=== PATIENT | male | born 1960 | race Caucasian/White ===

== ENCOUNTER 2017-12-01 08:15 | Inpatient (IN) | payer BC ==
[2017-12-01 09:25] VITALS: BMI 26.1
--- NOTE | 2017-12-01 10:46 | HP ---
COWS - Scale Resting Pulse: 1= [place] 81-100 Sweatin= Chills/Flushing Restless Observation: 1= Difficult to Sit Still Pupil Size: 2= Moderately Dilated Bone or Joint Aches: 1= Mild Discomfort Runny Nose/ Eye Tearin= Nasal Congestion GI Upset > 30mins: 1= Stomach Cramp Tremor Observation: 2= Slight Tremor Visible Yawning Observation: 1= 1-2x During Session Anxiety or Irritability: 1=Feels Anxious/Irritable Goose Flesh Skin: 0=Smooth Skin COWS Score: 12 Admission [facility] Chief Complaint: Heroin withdrawal symptoms. Allergies/Adverse Reactions: Allergies Allergy/AdvReac Type Severity Reaction Status Date / Time Penicillins AdvReac Swelling Verified 12/01/17 09:28 History of Present Illness: Patient presents with Heroin withdrawal symptoms. Patient starting sniffing heroin at age 18. Uses up to 10 bags daily. Also buys non-prescription Methadone. Denies nicotine dependence. Has PMH BPH, Asthma, depression and anxiety. Last attempt of detox was one year ago at [facility]. Reports last use of Heroin this morning. Denies SI/HI and suicide attempts. Social ETOH use. Exam Limitations: No Limitations - Ebola screening Have you traveled outside of the country in the last 21 days: No (N) Have you had contact with anyone from an Ebola affected area: No Have you been sick,other than usual withdrawal symptoms: No Do you have a fever: No - Review of Systems Constitutional: Chills, Night Sweats, Changes in sleep, Weight Stable EENT: reports: Nose Congestion Respiratory: reports: No Symptoms reported Cardiac: reports: No Symptoms Reported GI: reports: Poor Fluid Intake, Abdominal cramping : reports: Frequency Musculoskeletal: reports: Back Pain, Joint Pain, Muscle Pain Integumentary: reports: Sweating Neuro: reports: Tremors Endocrine: reports: No Symptoms Reported Hematology: reports: No Symptoms Reported Psychiatric: reports: Anxious, Depressed Patient History - Patient Medical History Hx Anemia: No Hx Asthma: Yes (ALBUTEROL PUMP) Hx Chronic Obstructive Pulmonary Disease (COPD): No Hx Cancer: No Hx Cardiac Disorders: No Hx Congestive Heart Failure: No Hx Hypertension: No Hx Hypercholesterolemia: No Hx Pacemaker: No HX Cerebrovascular Accident: No Hx Seizures: No Hx Dementia: No Hx Diabetes: No Hx Gastrointestinal Disorders: No Hx Liver Disease: No Hx Genitourinary Disorders: No Hx Sexually Transmitted Disorders: No Hx Renal Disease (ESRD): No Hx Thyroid Disease: No Hx Human Immunodeficiency Virus (HIV): No (Last test one year ago and results negative as per patient.) Hx Hepatitis C: No Hx Depression: Yes Hx Suicide Attempt: No Hx Bipolar Disorder: No Hx Schizophrenia: No - Patient Surgical History Past Surgical History: Yes Hx Neurologic Surgery: No Hx Cataract Extraction: No Hx Cardiac Surgery: No Hx Lung Surgery: No Hx Breast Surgery: No Hx Breast Biopsy: No Hx Abdominal Surgery: No Hx Appendectomy: No Hx Cholecystectomy: No Hx Genitourinary Surgery: No Hx Orthopedic Surgery: Yes (LEFT KNEE SURGERY 30-35 YEARS AGO) Anesthesia Reaction: No - PPD History Previous Implant?: Yes Documented Results: Negative w/o proof PPD to be Administered?: Yes - Smoking Cessation Smoking history: Never smoked Have you smoked in the past 12 months: No Hx Chewing Tobacco Use: No Initiated information on smoking cessation: No - Substance & Tx. History Hx Alcohol Use: Yes Hx Substance Use: Yes Substance Use Type: Heroin - Substances Abused Heroin Route: Inhalation Frequency: Daily Amount used: 10 BAGS DAILY ($75) Age of first use: 22 Date of Last Use: 12/01/17 Non-Rx Methadone Route: Oral Frequency: 3-6 times per week Amount used: 10 MG WHEN USED Age of first use: 29 Date of Last Use: 12/01/17 Alcohol Route: Oral Frequency: Daily Amount used: 2 BEERS DAILY Age of first use: 39 Date of Last Use: 11/26/17 Family Disease History - Family Disease History Family Disease History: Other: Mother (Depression, alive) Admission Physical Exam S - Vital Signs Vital Signs: Vital Signs - 24 hr 12/01/17 09:23 Temperature 97.9 F Pulse Rate 93 H Respiratory 18 Rate Blood Pressure 113/72 - Physical General Appearance: Yes: Appropriately Dressed, Tremorous, Sweating, Anxious HEENTM: Yes: EOMI, Hearing grossly Normal, Normocephalic, Normal Voice, SUHAIL, Pharynx Normal, Nasal Congestion Respiratory: Yes: Chest Non-Tender, Lungs Clear, Normal Breath Sounds, No Respiratory Distress, No Accessory Muscle Use Neck: Yes: No masses,lesions,Nodules, Supple Breast: Yes: Breast Exam Deferred Cardiology: Yes: Regular Rhythm, Regular Rate, S1, S2 Abdominal: Yes: Normal Bowel Sounds, Non Tender, Flat, Soft Genitourinary: Yes: Frequency Back: Yes: Normal Inspection, Muscle Spasm Musculoskeletal: Yes: full range of Motion, Gait Steady, Back pain, Muscle Pain Extremities: Yes: Normal Inspection, Normal Range of Motion, Non-Tender, Tremors Neurological: Yes: etcher aircraft II-XII NML intact, Fully Oriented, Alert, Motor Strength 5/5, Depressed Affect Integumentary: Yes: Normal Color, Warm, Moist Lymphatic: Yes: Within Normal Limits - Diagnostic (1) Opioid dependence with withdrawal Current Visit: Yes Status: Acute (2) Depressed affect Current Visit: Yes Status: Acute (3) Anxiety Current Visit: Yes Status: Acute (4) BPH (benign prostatic hyperplasia) Current Visit: Yes Status: Chronic Qualifiers: Lower urinary tract symptom presence: unspecified whether lower urinary tract symptoms present Qualified Code(s): N40.0 - Benign prostatic hyperplasia without lower urinary tract symptoms (5) Asthma Current Visit: Yes Status: Chronic Qualifiers: Asthma complication type: unspecified Cleared for Admission [facility] - Detox or Rehab [facility] Level of Care: Medically Managed Detox Regimen/Protocol: Methadone [facility] Breath Alcohol Content Breath Alcohol Content: 0 Urine Drug Screen - Results Drug Screen Negative: No Urine Drug Screen Results: OPI-Opiates, MTD-Methadone, OXY-Oxycodone
[2017-12-01] MEDS ORDERED: ALBUTEROL SO4 18 GM HFA INHALER IH PRN (10:55)
[2017-12-01] MEDS ORDERED: MAG HYDROX/AL HYDROX/SIMETH 30 ML UNIT-DOSE CUP PO PRN (10:57)
[2017-12-01] MEDS ORDERED: guaiFENesin/D-METHORPHAN HB 10 ML UNIT-DOSE CUPS PO PRN (10:57)
[2017-12-01] MEDS ORDERED: P-EPHED 60MG/TRIPROLIDI 2.5MG TABLET PO PRN (10:57)
[2017-12-01] MEDS ORDERED: MAGNESIUM HYDROX 2400MG/30ML ORAL SUSPENSION 30 ML CUP PO PRN (10:57)
[2017-12-01] MEDS ORDERED: MENTHOL/PHENOL 1 EACH UD MM PRN (10:57)
[2017-12-01] MEDS ORDERED: ACETAMINOPHEN 325 MG TABLET (FP) PO PRN (10:57)
[2017-12-01] MEDS ORDERED: LOPERAMIDE HCL 2 MG CAPSULE PO PRN (10:57)
[2017-12-01] MEDS ORDERED: MAGNESIUM CITRATE 300 ML BOTTLE PO PRN (10:57)
[2017-12-01] MEDS ORDERED: IBUPROFEN 400 MG TABLET (FP) PO PRN (10:57)
[2017-12-01] MEDS ORDERED: METHADONE HCL 10 MG TABLET (FOR DETOX USE ONLY) PO ONE ×2 (12:10→23:00)
[2017-12-01] MEDS: diazePAM 5 MG TABLET PO PRN (12:20)
--- NOTE | 2017-12-01 13:59 | CONSULT ---
[facility] Psychiatric Consult - Data Date of interview: 12/01/17 Admission source: [facility] Identifying data: First admission to [facility] for this 57 y/o male seeking detox treatment on for opiod and alcohol dependence.Patient is ,a father of two,domiciled,unemployed and supported on SSI benefits. Substance Abuse History: Discussed with the patient.Mr Garcia reports continuous use of street methadone and " a couple of beers " 3-4 times a week.Details in current [facility] reprort.Smoking history: Never smoked. Have you smoked in the past 12 months: No. Hx Chewing Tobacco Use: No. Initiated information on smoking cessation: No. - Substance & Tx. History. Hx Alcohol Use: Yes. Hx Substance Use: Yes. Substance Use Type: Heroin. - Substances Abused. Heroin. Route : Inhalation. Frequency: Daily. Amount used: 10 BAGS DAILY ($75). Age of first use: 22. Date of Last Use: 12/01/17. Non-Rx Methadone. Route: Oral. Frequency: 3-6 times per week. Amount used: 10 MG WHEN USED. Age of first use: 29. Date of Last Use: 12/01/17. Alcohol. Route: Oral. Frequency: Daily. Amount used: 2 BEERS DAILY. Age of first use: 39. Date of Last Use: Medical History: Benign prostatic hyperplasia (BPH),bronchial asthma and a remote history of orthosurgery (left knee). Psychiatric History: Patient denies history of psychiatric hospitalizations or suicide attempts.Mr Garcia is currently prescribed seroquel 50 mg/hs by his primary care physician to address insomnia. Physical/Sexual Abuse/Trauma History: No history. Additional Comment: Urine Drug Screen Results: OPI-Opiates, MTD-Methadone, OXY- Oxycodone.Noted. Mental Status Exam - Mental Status Exam Alert and Oriented to: Time, Place, Person Cognitive Function: Good Patient Appearance: Well Groomed Mood: Hopeful, Euthymic Affect: Appropriate, Normal Range Patient Behavior: Fatigued, Appropriate, Cooperative Speech Pattern: Clear, Appropriate Voice Loudness: Normal Thought Process: Intact, Goal Oriented Thought Disorder: Not Present Hallucinations: Denies Suicidal Ideation: Denies Homicidal Ideation: Denies Insight/Judgement: Fair Sleep: Poorly, Difficulty falling asleep Appetite: Good Muscle strength/Tone: Normal Gait/Station: Normal Psychiatric Findings - Problem List ([place] 1, 2,3) (1) Opioid dependence with withdrawal Current Visit: Yes Status: Acute (2) Insomnia Current Visit: Yes Status: Chronic - Initial Treatment Plan Initial Treatment Plan: Psychoeducation.Sleep hygiene.Detoxification in progress.Seroquel 50 mg po hs.Side effects/benefits discussed with the patient.Mr Garcia agrees to this careplan.Observation.
--- NOTE | 2017-12-01 18:04 | EKG ---
Test Reason : Blood Pressure : / mmHG Vent. Rate : 074 BPM Atrial Rate : 074 BPM P-R Int : 220 ms QRS Dur : 094 ms QT Int : 384 ms P-R-T Axes : 057 -30 051 degrees QTc Int : 426 ms SINUS RHYTHM WITH 1ST DEGREE A-V BLOCK LEFT AXIS DEVIATION INCOMPLETE RIGHT BUNDLE BRANCH BLOCK ABNORMAL ECG NO PREVIOUS ECGS AVAILABLE Confirmed by CATRACHITA CHOPRA MD ([id number]) on 12/01/2017 6:04:12 PM Referred By: Confirmed By:CATRACHITA CHOPRA MD
[2017-12-01] MEDS ORDERED: MELATONIN 5 MG TABLETS PO PRN (22:00)
[2017-12-01] MEDS: THIAMINE HCL 100 MG TABLET (FP) PO SCH (22:04)
[2017-12-01] MEDS: QUEtiapine FUMARATE 50 MG TABLET PO SCH (22:04)
[2017-12-02] MEDS ORDERED: METHADONE HCL 10 MG TABLET (FOR DETOX USE ONLY) PO ONE (10:00)
[2017-12-02 10:06] LABS: HEMATOCRIT 45.6 % (35.4-49); HEMOGLOBIN 15.7 GM/dL (11.7-16.9); MCH 31.2 pg (25.7-33.7); MCHC 34.4 g/dl (32.0-35.9); MEAN CELL VOLUME 90.7 fl (80-96); MEAN PLT VOLUME 8.5 fl (7.5-11.1); PLATELET COUNT 166 K/MM3 (134-434); RBC 5.02 M/mm3 (4.00-5.60); RDW 13.4 % (11.9-15.9); WHITE BLOOD COUNT 6.8 K/mm3 (4.0-10.0)
[2017-12-02 10:20] LABS: CHLORIDE 104 mmol/L (98-107); POTASSIUM 4.3 mmol/L (3.5-5.1); SODIUM 142 mmol/L (136-145)
[2017-12-02] MEDS: TAMSULOSIN HCL 0.4 MG CAP.ER.24H (FP) PO SCH (10:27)
[2017-12-02] MEDS: diazePAM 5 MG TABLET PO PRN ×2 (10:27→19:00)
[2017-12-02] MEDS: PRENATAL VITAMINS W/ FOLIC ACID TABLET (FP) PO SCH (10:27)
[2017-12-02 10:40] LABS: URINE APPEARANCE TURBID; URINE BILIRUBIN NEGATIVE (<2.0 mg/dL); URINE GLUCOSE (UA) NEGATIVE (NEGATIVE); URINE KETONE NEGATIVE (NEGATIVE); URINE LEUK ESTERASE NEGATIVE (NEGATIVE); URINE NITRITE NEGATIVE (NEGATIVE); URINE PROTEIN NEGATIVE (NEGATIVE); URINE UROBILINOGEN NEGATIVE mg/dL (0.2-1.0)
--- NOTE | 2017-12-02 10:52 | PN ---
BHS COWS - Scale Resting Pulse: 1= [place] 81-100 Sweatin= Chills/Flushing Restless Observation: 3= Extraneous Movement Pupil Size: 0= Normal to Room Light Bone or Joint Aches: 2= Severe Diffuse Aches Runny Nose/ Eye Tearin= Nasal Congestion GI Upset > 30mins: 0= None Tremor Observation of Outstretched Hands: 2= Slight Tremor Visible Yawning Observation: 0= None Anxiety or Irritability: 2=Irritable/Anxious Goose Flesh Skin: 0=Smooth Skin COWS Score: 12 BHS Progress Note (SOAP) Subjective: ANXIETY,SWEATS/CHILLS,TREMORS,FATIGUE. Objective: 12/02/17 10:51 Vital Signs 12/02/17 12/02/17 12/02/17 03:30 06:18 06:30 Temperature 96.9 F L Pulse Rate 74 Respiratory 18 18 18 Rate Blood Pressure 105/70 12/02/17 09:23 Temperature 98.4 F Pulse Rate 87 Respiratory 20 Rate Blood Pressure 117/74 Laboratory Tests 12/01/17 12/02/17 12/02/17 12:00 06:00 06:00 WBC 6.8 RBC 5.02 Hgb 15.7 Hct 45.6 MCV 90.7 MCH 31.2 MCHC 34.4 RDW 13.4 Plt Count 166 MPV 8.5 Sodium 142 Potassium 4.3 Chloride 104 HIV 1&2 Antibody Screen Negative HIV P24 Antigen Negative OTHER LABS PENDING Assessment: 12/02/17 10:52 WITHDRAWAL SX Plan: CONTINUE DETOX INCREASE PO FLUIDS
[2017-12-02 11:06] LABS: URINE COLOR DK YELLOW
[2017-12-02 11:23] LABS: ALBUMIN 4.4 g/dl (3.4-5.0); ALK PHOS 87 U/L (45-117); ANION GAP 6 (8-16); BILIRUBIN,TOTAL 1.2 mg/dL (0.2-1.0); BLOOD UREA NITROGEN 12 mg/dL (7-18); CALCIUM 9.3 mg/dL (8.5-10.1); CO2 32 mmol/L (21-32); GLUCOSE,RANDOM 107 mg/dL (74-106); SGOT/AST 61 U/L (15-37); SGPT/ALT 108 U/L (12-78); TOT PROT 8.2 g/dl (6.4-8.2)
[2017-12-02] MEDS: QUEtiapine FUMARATE 50 MG TABLET PO SCH (22:17)
[2017-12-02] MEDS: THIAMINE HCL 100 MG TABLET (FP) PO SCH (22:17)
[2017-12-03] MEDS: diazePAM 5 MG TABLET PO PRN ×2 (09:58→22:09)
[2017-12-03] MEDS: PRENATAL VITAMINS W/ FOLIC ACID TABLET (FP) PO SCH (09:59)
[2017-12-03] MEDS ORDERED: METHADONE HCL 5 MG TABLET (FOR DETOX USE ONLY) PO ONE (10:00)
[2017-12-03] MEDS: TAMSULOSIN HCL 0.4 MG CAP.ER.24H (FP) PO SCH (10:00)
--- NOTE | 2017-12-03 12:08 | PN ---
BHS COWS - Scale Resting Pulse: 1= [place] 81-100 Sweatin= Chills/Flushing Restless Observation: 3= Extraneous Movement Pupil Size: 0= Normal to Room Light Bone or Joint Aches: 1= Mild Discomfort Runny Nose/ Eye Tearin= None GI Upset > 30mins: 0= None Tremor Observation of Outstretched Hands: 2= Slight Tremor Visible Yawning Observation: 2= >3x During Session Anxiety or Irritability: 2=Irritable/Anxious Goose Flesh Skin: 0=Smooth Skin COWS Score: 12 BHS Progress Note (SOAP) Subjective: ANXIETY,SWEATS/CHILLS, "EXHAUSTED AND FATIGUE". Objective: ALERT O X 3. 12/03/17 12:01 Vital Signs 12/03/17 12/03/17 06:46 09:16 Temperature 96.7 F L 97.8 F Pulse Rate 66 81 Respiratory 16 20 Rate Blood Pressure 105/65 102/65 Laboratory Tests 12/01/17 12/01/17 12/02/17 08:00 12:00 06:00 WBC 6.8 RBC 5.02 Hgb 15.7 Hct 45.6 MCV 90.7 MCH 31.2 MCHC 34.4 RDW 13.4 Plt Count 166 MPV 8.5 Sodium Potassium Chloride Carbon Dioxide Anion Gap BUN Creatinine Creat Clearance w eGFR Random Glucose Calcium Total Bilirubin AST ALT Alkaline Phosphatase Total Protein Albumin Urine Color Dk yellow Urine Appearance Turbid Urine pH 6.0 Ur Specific [place] 1.023 Urine Protein Negative Urine Glucose (UA) Negative Urine Ketones Negative Urine Blood Negative Urine Nitrite Negative Urine Bilirubin Negative Urine Urobilinogen Negative Ur Leukocyte Esterase Negative RPR Titer Hep C Ab Diagnostic Liver Fibrosis Interp HIV 1&2 Antibody Screen Negative HIV P24 Antigen Negative 12/02/17 12/02/17 12/02/17 06:00 06:00 06:00 WBC RBC Hgb Hct MCV MCH MCHC RDW Plt Count MPV Sodium 142 Potassium 4.3 Chloride 104 Carbon Dioxide 32 Anion Gap 6 L BUN 12 Creatinine 1.0 Creat Clearance w eGFR > 60 Random Glucose 107 H Calcium 9.3 Total Bilirubin 1.2 H AST 61 H ALT 108 H Alkaline Phosphatase 87 Total Protein 8.2 Albumin 4.4 Urine Color Urine Appearance Urine pH Ur Specific [place] Urine Protein Urine Glucose (UA) Urine Ketones Urine Blood Urine Nitrite Urine Bilirubin Urine Urobilinogen Ur Leukocyte Esterase RPR Titer Nonreactive Hep C Ab Diagnostic <0.1 Liver Fibrosis Interp HIV 1&2 Antibody Screen HIV P24 Antigen 12/03/17 12:08 Assessment: 12/03/17 12:01 WITHDRAWAL SX Plan: CONTINUE DETOX
[2017-12-03] MEDS ORDERED: QUEtiapine FUMARATE 25 MG TABLET (FP) ONE (20:13)
[2017-12-03] MEDS: THIAMINE HCL 100 MG TABLET (FP) PO SCH (22:08)
[2017-12-03] MEDS: QUEtiapine FUMARATE 50 MG TABLET PO SCH (22:08)
[2017-12-04] MEDS ORDERED: METHADONE HCL 5 MG TABLET (FOR DETOX USE ONLY) PO ONE (10:00)
[2017-12-04] MEDS: PRENATAL VITAMINS W/ FOLIC ACID TABLET (FP) PO SCH (10:38)
[2017-12-04] MEDS: TAMSULOSIN HCL 0.4 MG CAP.ER.24H (FP) PO SCH (10:38)
--- NOTE | 2017-12-04 15:53 | PN ---
BHS Progress Note (SOAP) Subjective: Sweating, Fatigue, Interrupted Sleep. Objective: PATIENT A & O X 3, OBSERVED AMBULATING ON UNIT. NO ACUTE DISTRESS. 12/04/17 15:51 Vital Signs Temperature 98.8 F 12/04/17 13:29 Pulse Rate 52 L 12/04/17 13:29 Respiratory Rate 18 12/04/17 13:29 Blood Pressure 104/74 12/04/17 13:29 O2 Sat by Pulse Oximetry (%) Laboratory Tests 12/01/17 12/01/17 12/02/17 08:00 12:00 06:00 WBC 6.8 RBC 5.02 Hgb 15.7 Hct 45.6 MCV 90.7 MCH 31.2 MCHC 34.4 RDW 13.4 Plt Count 166 MPV 8.5 Sodium Potassium Chloride Carbon Dioxide Anion Gap BUN Creatinine Creat Clearance w eGFR Random Glucose Calcium Total Bilirubin AST ALT Alkaline Phosphatase Total Protein Albumin Urine Color Dk yellow Urine Appearance Turbid Urine pH 6.0 Ur Specific [place] 1.023 Urine Protein Negative Urine Glucose (UA) Negative Urine Ketones Negative Urine Blood Negative Urine Nitrite Negative Urine Bilirubin Negative Urine Urobilinogen Negative Ur Leukocyte Esterase Negative RPR Titer Hep C Ab Diagnostic Liver Fibrosis Interp HIV 1&2 Antibody Screen Negative HIV P24 Antigen Negative 12/02/17 12/02/17 12/02/17 06:00 06:00 06:00 WBC RBC Hgb Hct MCV MCH MCHC RDW Plt Count MPV Sodium 142 Potassium 4.3 Chloride 104 Carbon Dioxide 32 Anion Gap 6 L BUN 12 Creatinine 1.0 Creat Clearance w eGFR > 60 Random Glucose 107 H Calcium 9.3 Total Bilirubin 1.2 H AST 61 H ALT 108 H Alkaline Phosphatase 87 Total Protein 8.2 Albumin 4.4 Urine Color Urine Appearance Urine pH Ur Specific [place] Urine Protein Urine Glucose (UA) Urine Ketones Urine Blood Urine Nitrite Urine Bilirubin Urine Urobilinogen Ur Leukocyte Esterase RPR Titer Nonreactive Hep C Ab Diagnostic <0.1 Liver Fibrosis Interp HIV 1&2 Antibody Screen HIV P24 Antigen LABS NOTED. Assessment: 12/04/17 15:52 WITHDRAWAL SYMPTOMS. Plan: CONTINUE DETOX.
[2017-12-04] MEDS: hydrOXYzine PAMOATE 50 MG CAPSULE (FP) PO PRN ×2 (17:28→22:04)
[2017-12-04] MEDS: QUEtiapine FUMARATE 50 MG TABLET PO SCH (22:04)
[2017-12-04] MEDS: THIAMINE HCL 100 MG TABLET (FP) PO SCH (22:04)
[2017-12-05] MEDS: PRENATAL VITAMINS W/ FOLIC ACID TABLET (FP) PO SCH (09:35)
[2017-12-05] MEDS: TAMSULOSIN HCL 0.4 MG CAP.ER.24H (FP) PO SCH (09:35)
[2017-12-05] MEDS ORDERED: METHADONE HCL 10 MG TABLET (FOR DETOX USE ONLY) PO ONE (10:00)
--- NOTE | 2017-12-05 17:03 | PN ---
BHS Progress Note (SOAP) Subjective: Sweating, Anxious. Objective: PATIENT A & O X 3, OBSERVED AMBULATING ON UNIT. NO ACUTE DISTRESS. 12/05/17 17:02 Vital Signs Temperature 97.6 F 12/05/17 14:03 Pulse Rate 84 12/05/17 14:03 Respiratory Rate 20 12/05/17 14:03 Blood Pressure 92/77 12/05/17 14:03 O2 Sat by Pulse Oximetry (%) Laboratory Tests 12/01/17 12/01/17 12/02/17 08:00 12:00 06:00 WBC 6.8 RBC 5.02 Hgb 15.7 Hct 45.6 MCV 90.7 MCH 31.2 MCHC 34.4 RDW 13.4 Plt Count 166 MPV 8.5 Sodium Potassium Chloride Carbon Dioxide Anion Gap BUN Creatinine Creat Clearance w eGFR Random Glucose Calcium Total Bilirubin AST ALT Alkaline Phosphatase Total Protein Albumin Urine Color Dk yellow Urine Appearance Turbid Urine pH 6.0 Ur Specific [place] 1.023 Urine Protein Negative Urine Glucose (UA) Negative Urine Ketones Negative Urine Blood Negative Urine Nitrite Negative Urine Bilirubin Negative Urine Urobilinogen Negative Ur Leukocyte Esterase Negative RPR Titer Hep C Ab Diagnostic Liver Fibrosis Interp HIV 1&2 Antibody Screen Negative HIV P24 Antigen Negative 12/02/17 12/02/17 12/02/17 06:00 06:00 06:00 WBC RBC Hgb Hct MCV MCH MCHC RDW Plt Count MPV Sodium 142 Potassium 4.3 Chloride 104 Carbon Dioxide 32 Anion Gap 6 L BUN 12 Creatinine 1.0 Creat Clearance w eGFR > 60 Random Glucose 107 H Calcium 9.3 Total Bilirubin 1.2 H AST 61 H ALT 108 H Alkaline Phosphatase 87 Total Protein 8.2 Albumin 4.4 Urine Color Urine Appearance Urine pH Ur Specific [place] Urine Protein Urine Glucose (UA) Urine Ketones Urine Blood Urine Nitrite Urine Bilirubin Urine Urobilinogen Ur Leukocyte Esterase RPR Titer Nonreactive Hep C Ab Diagnostic <0.1 Liver Fibrosis Interp HIV 1&2 Antibody Screen HIV P24 Antigen LABS NOTED. Assessment: 12/05/17 17:02 WITHDRAWAL SYMPTOMS. Plan: CONTINUE DETOX. INCREASE DAILY PO FLUID INTAKE. PATIENT SCHEDULED FOR D/C TOMORROW.
[2017-12-05] MEDS: QUEtiapine FUMARATE 50 MG TABLET PO SCH (22:07)
[2017-12-05] MEDS: THIAMINE HCL 100 MG TABLET (FP) PO SCH (22:07)
[2017-12-05] MEDS: hydrOXYzine PAMOATE 50 MG CAPSULE (FP) PO PRN (22:07)
[2017-12-06] MEDS ORDERED: METHADONE HCL 5 MG TABLET (FOR DETOX USE ONLY) PO ONE (06:00)
[2017-12-06 09:13] VITALS: BP 114/79; PULSE 94; TEMP 97.4
[2017-12-06] MEDS: TAMSULOSIN HCL 0.4 MG CAP.ER.24H (FP) PO SCH (09:30)
[2017-12-06] MEDS: PRENATAL VITAMINS W/ FOLIC ACID TABLET (FP) PO SCH (10:13)
--- NOTE | 2017-12-06 17:29 | PN ---
BHS Progress Note (SOAP) Subjective: Patient denies current Detox symptoms and reports that he feels well overall. Objective: PATIENT A & O X 3, OBSERVED AMBULATING ON UNIT. NO ACUTE DISTRESS. 12/06/17 17:28 Vital Signs Temperature 97.4 F L 12/06/17 09:11 Pulse Rate 94 H 12/06/17 09:11 Respiratory Rate 20 12/06/17 09:11 Blood Pressure 114/79 12/06/17 09:11 O2 Sat by Pulse Oximetry (%) Laboratory Tests 12/01/17 12/01/17 12/02/17 08:00 12:00 06:00 WBC 6.8 RBC 5.02 Hgb 15.7 Hct 45.6 MCV 90.7 MCH 31.2 MCHC 34.4 RDW 13.4 Plt Count 166 MPV 8.5 Sodium Potassium Chloride Carbon Dioxide Anion Gap BUN Creatinine Creat Clearance w eGFR Random Glucose Calcium Total Bilirubin AST ALT Alkaline Phosphatase Total Protein Albumin Urine Color Dk yellow Urine Appearance Turbid Urine pH 6.0 Ur Specific [place] 1.023 Urine Protein Negative Urine Glucose (UA) Negative Urine Ketones Negative Urine Blood Negative Urine Nitrite Negative Urine Bilirubin Negative Urine Urobilinogen Negative Ur Leukocyte Esterase Negative RPR Titer Hep C Ab Diagnostic Liver Fibrosis Interp HIV 1&2 Antibody Screen Negative HIV P24 Antigen Negative 12/02/17 12/02/17 12/02/17 06:00 06:00 06:00 WBC RBC Hgb Hct MCV MCH MCHC RDW Plt Count MPV Sodium 142 Potassium 4.3 Chloride 104 Carbon Dioxide 32 Anion Gap 6 L BUN 12 Creatinine 1.0 Creat Clearance w eGFR > 60 Random Glucose 107 H Calcium 9.3 Total Bilirubin 1.2 H AST 61 H ALT 108 H Alkaline Phosphatase 87 Total Protein 8.2 Albumin 4.4 Urine Color Urine Appearance Urine pH Ur Specific [place] Urine Protein Urine Glucose (UA) Urine Ketones Urine Blood Urine Nitrite Urine Bilirubin Urine Urobilinogen Ur Leukocyte Esterase RPR Titer Nonreactive Hep C Ab Diagnostic <0.1 Liver Fibrosis Interp HIV 1&2 Antibody Screen HIV P24 Antigen LABS NOTED. Assessment: 12/06/17 17:28 COMPLETION OF DETOX REGIMEN. Plan: PATIENT SCHEDULED FOR DISCHARGE FROM DETOX UNIT TODAY.
--- NOTE | 2017-12-06 17:32 | DS ---
[facility] Detox Discharge Summary Admission Date: 12/01/17 Discharge Date: 12/06/17 - History Present History: Opioid Dependence Additional Comments: PATIENT GOING HOME. PATIENT ADVISED TO CONSIDER LOCAL 12-STEP / NA OUTPATIENT SUPPORT GROUPS FOR AFTERCARE. PATIENT WAS DISCHARGED FROM DETOX UNIT IN STABLE MEDICAL CONDITION. Pertinent Past History: Asthma, Insomnia, Depression, BPH, Anxiety. - Physical Exam Results Vital Signs: Vital Signs Temperature 97.4 F L 12/06/17 09:11 Pulse Rate 94 H 12/06/17 09:11 Respiratory Rate 20 12/06/17 09:11 Blood Pressure 114/79 12/06/17 09:11 O2 Sat by Pulse Oximetry (%) Pertinent Admission Physical Exam Findings: WITHDRAWAL SYMPTOMS. Laboratory Tests 12/01/17 12/01/17 12/02/17 08:00 12:00 06:00 WBC 6.8 RBC 5.02 Hgb 15.7 Hct 45.6 MCV 90.7 MCH 31.2 MCHC 34.4 RDW 13.4 Plt Count 166 MPV 8.5 Sodium Potassium Chloride Carbon Dioxide Anion Gap BUN Creatinine Creat Clearance w eGFR Random Glucose Calcium Total Bilirubin AST ALT Alkaline Phosphatase Total Protein Albumin Urine Color Dk yellow Urine Appearance Turbid Urine pH 6.0 Ur Specific [place] 1.023 Urine Protein Negative Urine Glucose (UA) Negative Urine Ketones Negative Urine Blood Negative Urine Nitrite Negative Urine Bilirubin Negative Urine Urobilinogen Negative Ur Leukocyte Esterase Negative RPR Titer Hep C Ab Diagnostic Liver Fibrosis Interp HIV 1&2 Antibody Screen Negative HIV P24 Antigen Negative 12/02/17 12/02/17 12/02/17 06:00 06:00 06:00 WBC RBC Hgb Hct MCV MCH MCHC RDW Plt Count MPV Sodium 142 Potassium 4.3 Chloride 104 Carbon Dioxide 32 Anion Gap 6 L BUN 12 Creatinine 1.0 Creat Clearance w eGFR > 60 Random Glucose 107 H Calcium 9.3 Total Bilirubin 1.2 H AST 61 H ALT 108 H Alkaline Phosphatase 87 Total Protein 8.2 Albumin 4.4 Urine Color Urine Appearance Urine pH Ur Specific [place] Urine Protein Urine Glucose (UA) Urine Ketones Urine Blood Urine Nitrite Urine Bilirubin Urine Urobilinogen Ur Leukocyte Esterase RPR Titer Nonreactive Hep C Ab Diagnostic <0.1 Liver Fibrosis Interp HIV 1&2 Antibody Screen HIV P24 Antigen LABS NOTED. - Treatment Hospital Course: Detox Protocol Followed, Detoxed Safely, Responded well, Discharged Condition Good Patient has Accepted a Rehab Referral to: PT. GOING HOME, ADVISED TO CONSIDER LOCAL 12-STEP/NA OP SUPPORT GROUPS. - Medication Discharge Medications: Ambulatory Orders Quetiapine Fumarate [Seroquel -] 50 mg PO HS 12/01/17 Tamsulosin HCl [Flomax -] 0.4 mg PO DAILY 12/01/17 Quetiapine Fumarate [Seroquel -] 50 mg PO HS #30 tablet 12/03/17 Albuterol Sulfate Inhaler - [Ventolin Hfa Inhaler -] 1 - 2 inh IH Q4H PRN #1 inhaler 12/06/17 - Diagnosis (1) Anxiety Status: Acute (2) Depressed affect Status: Acute (3) Opioid dependence with withdrawal Status: Acute (4) Asthma Status: Chronic Qualifiers: Asthma severity: mild Asthma persistence: unspecified Asthma complication type: uncomplicated Qualified Code(s): J45.909 - Unspecified asthma, uncomplicated (5) BPH (benign prostatic hyperplasia) Status: Chronic Qualifiers: Lower urinary tract symptom presence: unspecified whether lower urinary tract symptoms present Qualified Code(s): N40.0 - Benign prostatic hyperplasia without lower urinary tract symptoms (6) Insomnia Status: Chronic Qualifiers: Insomnia type: unspecified Qualified Code(s): G47.00 - Insomnia, unspecified - AMA Did Patient Leave Against Medical Advice: No
== END 2017-12-06 09:50 | disposition home or self-care (01) | DRG 773 ==
LOC: YASAS 08:15 → Y3N 12:06
PROVIDERS: ADMIT Internal Medicine; ATTEND Internal Medicine
PROC: HZ2ZZZZ Detoxification Services for Substance Abuse Treatment (ICD-10-PCS; principal; 2017-12-01)
DX: F11.23 Opioid dependence with withdrawal (principal); F41.9 Anxiety disorder, unspecified; R45.89 Other symptoms and signs involving emotional state; G47.00 Insomnia, unspecified; J45.909 Unspecified asthma, uncomplicated; N40.0 Benign prostatic hyperplasia without lower urinary tract symptoms
CPT/HCPCS: 36415; 80053; 81003; 85027; 86593; 87389; 93005; 93010